=== PATIENT | female | born 1945 | race Caucasian/White ===

== ENCOUNTER 2016-11-30 17:25 | Emergency (ER) | payer MEDICARE ==
[~2016-11-30] VITALS: Ht 165.1 cm; Wt 74.8 kg
[~2016-11-30 17:25] MED LIST: CHOL500021 PO; CIPR5DRO RIGHTEYE; CYCL10TA2 PO; DIAZ5TAB4 PO; GUAI-42 PO; ISOS30TA4 PO; ONDA4TAB10 SL; PANT40TA3 PO; PRED1DRO RIGHTEYE; ROPI1TAB2 PO; SERT50TA8 PO; SIMV20TA3 PO; TRAM1TAB49 PO; TRAZ100T12 PO
[2016-11-30] MEDS ORDERED: MORPHINE SULFATE 10 MG/ML VIAL. IM ONE (18:15)
[2016-11-30] MEDS ORDERED: ONDANSETRON ODT 4 MG TAB.RAPDIS. PO ONE (18:15)
--- NOTE | 2016-11-30 18:15 | ED.ADGEN ---
Past Medical History Past Medical History: Anxiety, Hypertension, IBS, Other Additional Past Medical Histor: Restless Legs,"May have an ulcer," Past Surgical History: Appendectomy, Cholecystectomy, Hysterectomy, Tubal ligation, Other Additional Past Surgical Histo: Bilateral cataract Alcohol Use: Occasionally Drug Use: None Adult General Chief Complaint Chief Complaint: SHOUDLER Pain [facility] HPI Patient is a 71 year old emailed history of anxiety and chronic back pain who presents with acute right shoulder pain radiating from right neck starting yesterday. Pain progressed throughout today. Pain is worse with palpation, shoulder movement and neck rotation. Patient reports tingling in her fingers but denies loss of motor strength or function. Patient denies injury or trauma, but states she feels as though she may have slept on neck wrong. She denies chest pain, nausea or shortness of breath or sweats. However, shortly after ED arrival, patient vomited one time. She please she is nauseated from the pain medication she took prior to ED arrival. Review of Systems Review of Systems ROS as per HPI. Current Medications Current Medications Current Medications Medications (Trade) Dose Ordered Sig/Rocío Start Time Stop Time Status Last Admin Dose Admin Diazepam (Valium) 10 mg 1X ONCE 11/30/16 18:15 11/30/16 18:16 DC 11/30/16 18:25 10 MG Morphine Sulfate 5 mg 1X ONCE 11/30/16 18:15 11/30/16 18:16 DC 11/30/16 18:25 5 MG Ondansetron HCl (Zofran Odt) 4 mg 1X ONCE 11/30/16 18:15 11/30/16 18:16 DC 11/30/16 18:25 4 MG Allergies Allergies Allergies Coded Allergies Type Severity Reaction Last Updated Verified No Known Drug Allergies 12/06/14 No Physical Exam Physical Exam Constitutional: Well developed, well nourished, anxious, moderate distress secondary to pain. HENT: Normocephalic, atraumatic, bilateral external ears normal, oropharynx moist, no oral exudates, nose normal. Eyes: PERRLA, EOMI, conjunctiva normal. Neck: Normal range of motion, no tenderness, supple, limited lateral rotation secondary to neck pain. Cardiovascular:Heart rate regular rhythm, no murmur. Lungs & Thorax: Bilateral breath sounds clear to auscultation. Abdomen: Bowel sounds normal, soft, no tenderness,. Skin: Warm, dry, no erythema, no rash. Back: No tenderness, no CVA tenderness. Extremities: Right shoulder, no bony tenderness, right shoulder abduction and rotation produces neck pain and radicular pain symptoms. Neurologic: Right upper extremity, no motor weakness or loss of sensation. Psychologic: Affect normal, judgement normal, mood normal. Current Patient Data Vital Signs Vital Signs Date Time Temp Pulse Resp B/P (MAP) Pulse Ox O2 Delivery O2 Flow Rate FiO2 11/30/16 19:45 68 22 130/62 (84) 98 Room Air 11/30/16 17:25 98.0 98.0 EKG EKG [] Radiology/Procedures Radiology/Procedures [MRI cervical spine reviewed: Please see radiology report for complete results. Right shoulder: No obvious displaced disease.] Course & Med Decision Making Course & Med Decision Making Pertinent Labs and Imaging studies reviewed. (See chart for details) [No motor weakness on physical exam. High grade foraminal stenosis. Patient's pain addressed symptoms improved. Patient nauseated secondary to pain medications.] Dragon Disclaimer Dragon Disclaimer This electronic medical record was generated, in whole or in part, using a voice recognition dictation system. JUNIOR STEPHENSON DO November 30, 2016 18:15
--- NOTE | 2016-11-30 19:38 | RAD ---
PROCEDURE MRI cervical spine without contrast. HISTORY Shoulder pain and neck pain. Right arm pain. Symptoms for 2 days. TECHNIQUE Sagittal T1, sagittal T2, sagittal STIR, axial T2, and axial T2 gradient sequences are provided. COMPARISON None. FINDINGS There is no malalignment. There is no marrow edema. There is no worrisome marrow lesion. There is no cord signal abnormality. Cervicomedullary junction is unremarkable. Degenerative findings by individual level are as follows: C2-C3: There is no canal or foraminal compromise. C3-C4: There is a minimal disc osteophyte complex without canal or foraminal compromise. C4-C5: There is a disc osteophyte complex and uncinate process spurring. There is effacement of the ventral CSF column. Sagittal midline AP diameter of the thecal sac is narrowed to 8 millimeters. Foraminal narrowing is at least moderate. C5-C6: Disc osteophyte complex and uncinate process spurring are noted. Midline AP diameter of the thecal sac is narrowed to 8-9 millimeters. Foraminal narrowing bilaterally appears high-grade. There is effacement of the ventral CSF column. There is narrowing of the interspace. C6-C7: Disc osteophyte complex and uncinate process spurring are noted. Midline AP diameter of the thecal sac is minimally narrowed to 10 millimeters. Foraminal narrowing is moderate to severe. C7-T1: There is no canal or foraminal compromise. IMPRESSION Degenerative changes in the cervical spine are greatest at C4-C5 and C5-C6. Electronically signed by: Aubrey Barrios MD (November 30, 2016 19:37:24)
[2016-11-30 19:45] VITALS: BP 130/62
--- NOTE | 2016-12-01 08:25 | RAD ---
Indication: Atraumatic right shoulder pain radiating to fingers. Nausea and vomiting. Technique: 3 views of the right shoulder are submitted for review. No comparison is available. Findings: There is no fracture or dislocation. There is minimal spurring at the acromioclavicular joint. Impression: Negative for fracture.
== END 2016-11-30 20:03 | disposition home or self-care (01) ==
LOC: ER 18:25
DX: M25.511 Pain in right shoulder (principal); G89.29 Other chronic pain; F41.9 Anxiety disorder, unspecified; I10 Essential (primary) hypertension
CPT/HCPCS: 72141; 73030; 96372; 99284; J2270; J3360; Q0162

== ENCOUNTER 2016-12-15 02:30 | Inpatient (IN) | payer MEDICARE ==
[~2016-12-15] VITALS: Ht 162.6 cm; Wt 75.4 kg
[2016-12-15] MEDS ORDERED: ASPIRIN 325 MG TABLET PO ONE (03:15)
[2016-12-15] MEDS: NITROGLYCERIN SUBLINGUAL 0.4 MG BOTTLE OF 25. SL PRN ×3 (03:26→03:46)
[2016-12-15 03:42] LABS: BASO # 0.1 x10^3/uL (0.0-0.2); BASO % 1 % (0-3); EOS % 1 % (0-3); HEMATOCRIT 43.8 % (36.0-47.0); HEMOGLOBIN 15.2 g/dL (12.0-15.5); LYMPH # 3.2 x10^3/uL (1.0-4.8); LYMPH % 34 % (24-48); MEAN CORPUSCULAR HEMOGLOBIN 30 pg (25-35); MEAN CORPUSCULAR HGB CONC 35 g/dL (31-37); MEAN CORPUSCULAR VOLUME 87 fL (79-100); MONO % 7 % (0-9); NEUT % 58 % (31-73); PLATELET COUNT 284 x10^3/uL (140-400); RED BLOOD COUNT 5.05 x10^6/uL (3.50-5.40); RED CELL DISTRIBUTION WIDTH 14.1 % (11.5-14.5); WHITE BLOOD COUNT 9.5 x10^3/uL (4.0-11.0)
--- NOTE | 2016-12-15 03:56 | PHYS DOC ---
Past Medical History Past Medical History: Anxiety, Hypertension, IBS, Other Additional Past Medical Histor: Restless Legs,"May have an ulcer" SHINGLES Past Surgical History: Appendectomy, Cholecystectomy, Hysterectomy, Tubal ligation, Other Additional Past Surgical Histo: Bilateral cataract Alcohol Use: Occasionally Drug Use: None Adult General Chief Complaint Chief Complaint: CHEST WALL PAIN HPI HPI Patient is a 71 year old [f__sex] who presents with [] Review of Systems Review of Systems Constitutional: Denies fever or chills [] Eyes: Denies change in visual acuity, redness, or eye pain [] HENT: Denies nasal congestion or sore throat [] Respiratory: Denies cough or shortness of breath [] Cardiovascular: No additional information not addressed in HPI [] GI: Denies abdominal pain, nausea, vomiting, bloody stools or diarrhea [] : Denies dysuria or hematuria [] Musculoskeletal: Denies back pain or joint pain [] Integument: Denies rash or skin lesions [] Neurologic: Denies headache, focal weakness or sensory changes [] Endocrine: Denies polyuria or polydipsia [] Current Medications Current Medications Current Medications Medications (Trade) Dose Ordered Sig/Rocío Start Time Stop Time Status Last Admin Dose Admin Aspirin (Torrey Aspirin) 325 mg 1X ONCE 12/15/16 03:15 12/15/16 03:16 DC 12/15/16 03:26 325 MG Nitroglycerin (Nitrostat) 0.4 mg PRN Q5MIN PRN 12/15/16 03:15 12/15/16 03:46 0.4 MG Allergies Allergies Allergies Coded Allergies Type Severity Reaction Last Updated Verified No Known Drug Allergies 12/06/14 No Physical Exam Physical Exam Constitutional: Well developed, well nourished, no acute distress, non-toxic appearance. [] HENT: Normocephalic, atraumatic, bilateral external ears normal, oropharynx moist, no oral exudates, nose normal. [] Eyes: PERRLA, EOMI, conjunctiva normal, no discharge. [] Neck: Normal range of motion, no tenderness, supple, no stridor. [] Cardiovascular:Heart rate regular rhythm, no murmur [] Lungs & Thorax: Bilateral breath sounds clear to auscultation [] Abdomen: Bowel sounds normal, soft, no tenderness, no masses, no pulsatile masses. [] Skin: Warm, dry, no erythema, no rash. [] Back: No tenderness, no CVA tenderness. [] Extremities: No tenderness, no cyanosis, no clubbing, ROM intact, no edema. [] Neurologic: Alert and oriented X 3, normal motor function, normal sensory function, no focal deficits noted. [] Psychologic: Affect normal, judgement normal, mood normal. [] Current Patient Data Vital Signs Vital Signs Date Time Temp Pulse Resp B/P (MAP) Pulse Ox O2 Delivery O2 Flow Rate FiO2 12/15/16 03:46 99 132/76 12/15/16 03:33 18 94 Room Air 12/15/16 02:51 97.9 97.9 Lab Values Laboratory Tests Test 12/15/16 03:00 White Blood Count 9.5 x10^3/uL (4.0-11.0) Red Blood Count 5.05 x10^6/uL (3.50-5.40) Hemoglobin 15.2 g/dL (12.0-15.5) Hematocrit 43.8 % (36.0-47.0) Mean Corpuscular Volume 87 fL (79-100) Mean Corpuscular Hemoglobin 30 pg (25-35) Mean Corpuscular Hemoglobin Concent 35 g/dL (31-37) Red Cell Distribution Width 14.1 % (11.5-14.5) Platelet Count 284 x10^3/uL (140-400) Neutrophils (%) (Auto) 58 % (31-73) Lymphocytes (%) (Auto) 34 % (24-48) Monocytes (%) (Auto) 7 % (0-9) Eosinophils (%) (Auto) 1 % (0-3) Basophils (%) (Auto) 1 % (0-3) Neutrophils # (Auto) 5.5 x10^3uL (1.8-7.7) Lymphocytes # (Auto) 3.2 x10^3/uL (1.0-4.8) Monocytes # (Auto) 0.6 x10^3/uL (0.0-1.1) Eosinophils # (Auto) 0.0 x10^3/uL (0.0-0.7) Basophils # (Auto) 0.1 x10^3/uL (0.0-0.2) Sodium Level 135 mmol/L (136-145) L Potassium Level 3.8 mmol/L (3.5-5.1) Chloride Level 95 mmol/L (98-107) L Carbon Dioxide Level 27 mmol/L (21-32) Anion Gap 13 (6-14) Blood Urea Nitrogen 13 mg/dL (7-20) Creatinine 0.8 mg/dL (0.6-1.0) Estimated GFR (Cockcroft-Gault) 71.1 Glucose Level 145 mg/dL (70-99) H Calcium Level 10.0 mg/dL (8.5-10.1) Troponin I Quantitative < 0.017 ng/mL (0.000-0.055) Laboratory Tests 12/15/16 03:00 Laboratory Tests 12/15/16 03:00 EKG EKG EKG as interpreted by me shows a sinus rhythm with a rate of 96 bpm. There is a leftward axis. There is no acute injury pattern seen. Intervals are normal. Radiology/Procedures Radiology/Procedures [] Course & Med Decision Making Course & Med Decision Making Pertinent Labs and Imaging studies reviewed. (See chart for details) [] Dragon Disclaimer Dragon Disclaimer This electronic medical record was generated, in whole or in part, using a voice recognition dictation system. Departure Departure Impression: Primary Impression: Chest pain Disposition: ADMITTED INPATIENT Admitting Physician: Minna Richards Referrals: SYLVIA HARP MD (PCP) ARGELIA NOBLE DO Dec 15, 2016 03:56
[2016-12-15 03:59] LABS: CREATININE 0.8 mg/dL (0.6-1.0); GFR 71.1; POTASSIUM 3.8 mmol/L (3.5-5.1)
[2016-12-15] MEDS ORDERED: ACETAMINOPHEN 325 MG TABLET. PO PRN ×2 (04:15→13:30)
[2016-12-15] MEDS ORDERED: ONDANSETRON PF 4 MG/2 ML VIAL. IV PRN (04:15)
--- NOTE | 2016-12-15 04:41 | ACF ---
Admission Forms Criteria CHEST PAIN Clinical Indications for Admission to Inpatient Care (Place 'X' for any and all applicable criteria): Admission is indicated for chest pain and ANY ONE of the following(1)(2)(3)(4)(5 ): [ ]I. Angina with acute coronary syndrome (Also use Myocardial Infarction or Angina guideline) [ ]II. Hemodynamic instability [ ]III. Angina needing acute intervention as indicated by ALL of the following( 11)(12): [ ]a) Unstable angina is present as indicated by angina that is ANY ONE of the following: [ ]i) New onset [ ]ii) Nocturnal [ ]iii) Prolonged at rest [ ]iv) Progressive [ ]b) Angina warrants acute intervention as indicated by ANY ONE of the following: [ ]i) Recurrent angina (e.g, not responding as previously to treatment) [ ]ii) Angina at rest or with low-level activities despite initial medical therapy [ ]iii) New or presumably new ST-segment depression on ECG [ ]iv) Signs or symptoms of heart failure (eg, dyspnea, pulmonary edema) [ ]v) New or worsening mitral regurgitation [ ]vi) Hemodynamic instability [ ]vii) Dangerous arrhythmia (eg, sustained ventricular tachycardia) [ ]viii) History of percutaneous coronary intervention within 6 months [ ]ix) History of coronary artery bypass graft surgery [ ]x) MOUNA risk score of 2 or greater[A] [ ]xi) History of Diabetes(14) [ ]xii) High-risk cardiac ischemia findings on noninvasive testing (e.g, echocardiogram, treadmill testing, nuclear scan) [ ]xiii) Chronic renal insufficiency (ie, estimated GFR less than 60 mL/min/1.732m) [ ]xiv) Left ventricular ejection fraction less than 40% [ ]IV. Evidence of NE (eg, cardiac biomarkers positive, ST-segment elevation on ECG) also use Myocardial Infarction Criteria Form. [ ]V. Pulmonary edema [ ]. Respiratory distress [ ]VII. Chest pain indicative of serious diagnosis other than coronary artery disease (eg, aortic dissection) [ ]VIII. Contraindications and/or Inappropriate clinical situations for Observational Care in patients with Chest Pain, when ANY ONE of the following is required: [ ]a) Patient with risk factor for pulmonary embolism, acute coronary syndrome and myocardial infarction (18) [ ]b) Patient with Pulmonary embolism require an average LOS of 4.3 days, therefore emergency department observation management is inappropriate 18,23 [ ]c) Painful condition/s in the elderly, have the highest rate of recidivism after emergency department observation management (10.8%) 20,21,22 [ ]d) Elevated cardiac biomarker requires intensive and exhaustive care (19) [X]IX. General contraindications and/or Inappropriate clinical situations for Observational Care in patients with Chest Pain, when ANY ONE of the following is required: [X]a) Prediction of prolongation of LOS based on ANY ONE of the following may be considered as a contraindication for observational care 2, 3, 4, 5, 6, 7, 8, 9, 10, 11 [ ]i) Age > 65 yrs. [ ]ii) Patient arriving by ambulance [ ]iii) Patient with high acuity [X]iv) Patient requiring vital sign monitoring [ ]v) Patient on IV medication [ ]b) Systolic blood pressures 180mmHg 3,12 [ ]c) Patient with altered mental status including delirium and other alteration of consciousness, (3) [ ]d) Patient whose discharge disposition will be to a custodial home or rehabilitation home should not be managed in Emergency Department Observation Unit. CMS rule requires 3 days hospital stay before such placement. 3,13 [ ]e) Patient with failure to thrive due to broad array of etiologies 3,16,17 [ ]f) Inability to ambulate 3,14 Extended stay beyond goal length of stay may be needed for (1)(28): [ ]a) Specific condition diagnosed after evaluation (eg, pulmonary embolism, aortic dissection) [ ]b) Unstable angina [ ]c) Continued suspicion of acute coronary syndrome with inability to complete needed cardiac evaluation (eg, patient clinically unable to undergo stress testing) [ ]d) Myocardial infarction (Contents from ANGINA and CHEST PAIN clinical indications for admission to inpatient care have been integrated in this form) The original [facility] content created by [employer] has been revised. The portions of the content which have been revised are identified through the use of italic text or in bold, and [facility] has neither reviewed nor approved the modified material. All other unmodified content is copyright [employer]. Please see references footnoted in the original [facility] edition 2016 Admission Criteria Met?: Yes IRINEO FERNÁNDEZ Dec 15, 2016 04:41
[2016-12-15] MEDS ORDERED: GABA-587 PO (04:58)
[2016-12-15 07:00] VITALS: BP 138/81
--- NOTE | 2016-12-15 07:30 | PDOC ---
Provider Note Provider Note Full note to follow Non - cardiac chest pain. No further testing necessary. Pls call with questions. CRISTOBAL MANN MD Dec 15, 2016 07:30
--- NOTE | 2016-12-15 07:33 | RAD ---
Indication: Chest pain. Time of exam 0321 hours. Correlation is made with prior chest from 06/11/2015. FINDINGS: The heart size is normal. The lungs are clear. No pleural effusion or pneumothorax is identified. The pulmonary vascularity is normal. IMPRESSION: No acute abnormality detected.
--- NOTE | 2016-12-15 07:56 | EKG ---
[facility] [address] [place] [address] Test Date: 2016-12-15 Test Time: 02:40:04 Pat Name: BLANE BRAY Department: Room: 244 1 Gender: F Vamp Creaser: : 1945 Requested By: ARGELIA NOBLE Order Number: [id number] Reading MD: Issa Stanford Measurements Intervals Switchback Rate: 96 P: 56 MA: 126 QRS: -22 QRSD: 68 T: 51 QT: 348 QTc: 441 Interpretive Statements SINUS RHYTHM LEFTWARD AXIS QRS(T) CONTOUR ABNORMALITY CONSIDER ANTEROSEPTAL MYOCARDIAL DAMAGE RI6.01 Unconfirmed report Compared to ECG 06/08/2015 15:03:03 No significant changes Electronically Signed On 12-18-2016 9:51:09 CDT by Issa Stanford
[2016-12-15 11:00] VITALS: BP 141/79
[2016-12-15] MEDS ORDERED: CIPR500T94 PO (13:10)
[2016-12-15] MEDS ORDERED: TRAMADOL HCL PO PRN (13:15)
[2016-12-15] MEDS ORDERED: ACETAMINOPHEN PO PRN (13:15)
--- NOTE | 2016-12-15 13:18 | PDOC1 ---
History and Physical Date of Admission Date of Admission DATE: 12/15/16 TIME: 13:11 Identification/Chief Complaint Chief Complaint R sided chest pain Problems: Source Source: Caregiver, Chart review, Patient History of Present Illness History of Present Illness R sided CP, pleuritic, no associated SOA, diaphoresis, no URI sxs, reproducible on palpation, no radiation, happened at rest, relieved by narcs,. No known CAD hx, EKG and trops reassuring, labs ok, VS ok,. Cleared by cards to go home,. Non gerd in symptomatology. Heavy discussion, likes narcs, Told her MSK pain, costochondritis, better treated with NSAIds, NOw tells me dysuria, UA pending but has sxs,. no white ct, no fever Will rx cipro, NKDA Past Medical History Cardiovascular: Hyperlipidemia Pulmonary: Bronchitis GI: Constipation Heme/Onc: No pertinent hx Hepatobiliary: No pertinent hx Musculoskeletal: low back pain Rheumatologic: No pertinent hx Infectious disease: No pertinent hx ENT: No pertinent hx Renal/: No pertinent hx Endocrine: No pertinent hx Dermatology: No pertinent hx Past Surgical History Past Surgical History: Other (back sx?) Family History Family History: No Significant (rebiewed) Social History Smoke: No ALCOHOL: none Drugs: None Current Problem List Problem List Problems Medical Problems: (1) Chest pain Status: Acute Problems: Current Medications Current Medications Current Medications Nitroglycerin (Nitrostat) 0.4 mg PRN Q5MIN PRN SL CHEST PAIN Last administered on 12/15/16 03:46; Start 12/15/16 at 03:15 Aspirin (Torrey Aspirin) 325 mg 1X ONCE PO Last administered on 12/15/16 03:26 ; Start 12/15/16 at 03:15; Stop 12/15/16 at 03:16; Status DC Ondansetron HCl (Zofran) 4 mg PRN Q8HRS PRN IV NAUSEA/VOMITING; Start 12/15/16 at 04:15; Stop 12/16/16 at 04:14 Acetaminophen (Tylenol) 650 mg PRN Q4HRS PRN PO FEVER Last administered on 10:26; Start 12/15/16 at 04:15; Stop 12/16/16 at 04:14 Active Scripts Active Zofran Odt (Ondansetron) 4 Mg Tab.rapdis 1 Tab SL Q8HRS Protonix (Pantoprazole Sodium) 40 Mg Tablet.dr 1 Tab PO DAILY Reported Gabapentin 400 Mg Capsule 400 Mg PO TID Diazepam 5 Mg Tablet 1 Tab PO DAILY Ultracet Tablet (Tramadol Hcl/Acetaminophen) 1 Each Tablet 37.5 Mg PO QID PRN Sertraline Hcl 50 Mg Tablet 50 Mg PO DAILY Ropinirole Hcl 1 Mg Tablet 1 Mg PO DAILY Simvastatin 20 Mg Tablet 20 Mg PO DAILY Trazodone Hcl 100 Mg Tablet 100 Mg PO HS Cyclobenzaprine Hcl 10 Mg Tablet 1 Tab PO DAILY Allergies Allergies: Coded Allergies: No Known Drug Allergies (Unverified , 12/06/14) ROS General: No: Chills, Night Sweats, Fatigue, Malaise, Appetite, Other PSYCHOLOGICAL ROS: No: Anxiety, Behavioral Disorder, Concentration difficultie , Decreased libido, Depression, Disorientation, Hallucinations, Hostility, Irritablity, Memory difficulties, Mood Swings, Obsessive thoughts, Physical abuse, Sexual abuse, Sleep disturbances, Suicidal ideation, Other Eyes: No Blurry vision, No Decreased vision, No Double vision, No Dry eyes, No Excessive tearing, No Eye Pain, No Itchy Eyes, No Loss of vision, No Photophobia , No Scotomata, No Uses contacts, No Uses glasses, No Other HEENT: No: Heacaches, Visual Changes, Hearing change, Nasal congestion, Nasal discharge, Oral lesions, Sinus pain, Sore Throat, Epistaxis, Sneezing, Snoring, Tinnitus, Vertigo, Vocal changes, Other ALLERGY AND IMMUNOLOGY: No: Hives, Insect Bite Sensitivity, Itchy/Watery Eyes, Nasal Congestion, Post Nasal Drip, Seasonal Allergies, Other Hematological and Lymphatic: No: Bleeding Problems, Blood Clots, Blood Transfusions, Brusing, Night Sweats, Pallor, Swollen Lymph Nodes, Other ENDOCRINE: No: Breast Changes, Galactorrhea, Hair Pattern Changes, Hot Flashes , Malaise/lethargy, Mood Swings, Palpitations, Polydipsia/polyuria, Skin Changes , Temperature Intolerance, Unexpected Weight Changes, Other Breast: No New/Changing Breast Lumps, No Nipple changes, No Nipple discharge, No Other Respiratory: No: Cough, Hemoptysis, Orthopnea, Pleuritic Pain, Shortness of breath, SOB with excertion, Sputum Changes, Stridor, Tachypnea, Wheezing, Other Cardiovascular: yes Chest Pain Genitourinary: YES Dysuria, YES Frequency Skin: No Dry Skin, No Eczema, No Hair Changes, No Lumps, No Mole Changes, No Mottling, No Nail Changes, No Pruritus, No Rash, No Skin Lesion Changes, No Other, No Acne Physical Exam General: Alert, Oriented X3, Cooperative, No acute distress HEENT: PERRLA Lungs: Clear to auscultation, Normal air movement Heart: S1S2 Cardiovascular: S1 Breasts: Normal, Rt breast nml w/o mass, Lt breast nml w/o mass, Nipples normal Abdomen: Normal bowel sounds, Soft, No tenderness, No hepatosplenomegaly, No masses Rectal Exam: not examined PELVIC: Nml ext genitalia Extremities: No clubbing, No cyanosis, No edema, Normal pulses, No tenderness/ swelling Skin: No rashes, No breakdown, No significant lesion Neuro: Normal gait, Normal speech, Strength at 5/5 X4 ext, Normal tone, Sensation intact, Cranial nerves 3-12 NL, Reflexes 2+ Psych/Mental Status: Mental status NL, Mood NL Vitals Vitals Vital Signs Date Time Temp Pulse Resp B/P (MAP) Pulse Ox O2 Delivery O2 Flow Rate FiO2 12/15/16 11:00 98.0 90 20 141/79 (99) 94 Room Air 98.0 Labs Labs Laboratory Tests Test 12/15/16 03:00 White Blood Count 9.5 x10^3/uL (4.0-11.0) Red Blood Count 5.05 x10^6/uL (3.50-5.40) Hemoglobin 15.2 g/dL (12.0-15.5) Hematocrit 43.8 % (36.0-47.0) Mean Corpuscular Volume 87 fL (79-100) Mean Corpuscular Hemoglobin 30 pg (25-35) Mean Corpuscular Hemoglobin Concent 35 g/dL (31-37) Red Cell Distribution Width 14.1 % (11.5-14.5) Platelet Count 284 x10^3/uL (140-400) Neutrophils (%) (Auto) 58 % (31-73) Lymphocytes (%) (Auto) 34 % (24-48) Monocytes (%) (Auto) 7 % (0-9) Eosinophils (%) (Auto) 1 % (0-3) Basophils (%) (Auto) 1 % (0-3) Neutrophils # (Auto) 5.5 x10^3uL (1.8-7.7) Lymphocytes # (Auto) 3.2 x10^3/uL (1.0-4.8) Monocytes # (Auto) 0.6 x10^3/uL (0.0-1.1) Eosinophils # (Auto) 0.0 x10^3/uL (0.0-0.7) Basophils # (Auto) 0.1 x10^3/uL (0.0-0.2) Sodium Level 135 mmol/L (136-145) Potassium Level 3.8 mmol/L (3.5-5.1) Chloride Level 95 mmol/L (98-107) Carbon Dioxide Level 27 mmol/L (21-32) Anion Gap 13 (6-14) Blood Urea Nitrogen 13 mg/dL (7-20) Creatinine 0.8 mg/dL (0.6-1.0) Estimated GFR (Cockcroft-Gault) 71.1 Glucose Level 145 mg/dL (70-99) Calcium Level 10.0 mg/dL (8.5-10.1) Troponin I Quantitative < 0.017 ng/mL (0.000-0.055) Laboratory Tests Test 12/15/16 03:00 White Blood Count 9.5 x10^3/uL (4.0-11.0) Red Blood Count 5.05 x10^6/uL (3.50-5.40) Hemoglobin 15.2 g/dL (12.0-15.5) Hematocrit 43.8 % (36.0-47.0) Mean Corpuscular Volume 87 fL (79-100) Mean Corpuscular Hemoglobin 30 pg (25-35) Mean Corpuscular Hemoglobin Concent 35 g/dL (31-37) Red Cell Distribution Width 14.1 % (11.5-14.5) Platelet Count 284 x10^3/uL (140-400) Neutrophils (%) (Auto) 58 % (31-73) Lymphocytes (%) (Auto) 34 % (24-48) Monocytes (%) (Auto) 7 % (0-9) Eosinophils (%) (Auto) 1 % (0-3) Basophils (%) (Auto) 1 % (0-3) Neutrophils # (Auto) 5.5 x10^3uL (1.8-7.7) Lymphocytes # (Auto) 3.2 x10^3/uL (1.0-4.8) Monocytes # (Auto) 0.6 x10^3/uL (0.0-1.1) Eosinophils # (Auto) 0.0 x10^3/uL (0.0-0.7) Basophils # (Auto) 0.1 x10^3/uL (0.0-0.2) Sodium Level 135 mmol/L (136-145) Potassium Level 3.8 mmol/L (3.5-5.1) Chloride Level 95 mmol/L (98-107) Carbon Dioxide Level 27 mmol/L (21-32) Anion Gap 13 (6-14) Blood Urea Nitrogen 13 mg/dL (7-20) Creatinine 0.8 mg/dL (0.6-1.0) Estimated GFR (Cockcroft-Gault) 71.1 Glucose Level 145 mg/dL (70-99) Calcium Level 10.0 mg/dL (8.5-10.1) Troponin I Quantitative < 0.017 ng/mL (0.000-0.055) VTE Prophylaxis Ordered VTE Prophylaxis Devices: Yes VTE Pharmacological Prophylaxi: Yes Assessment/Plan Assessment/Plan 1. Costochondritis, MSK CP 2. Depression/anxiety NOS 3. Overweight 4. Dyslipidemia 5. Symptomatic UTI, likely PLAn: Goem today NSAids COunselled PO CIpro to home GILLIAN SORENSEN MD Dec 15, 2016 13:18
--- NOTE | 2016-12-15 13:20 | PDOC3 ---
Discharge Summary Visit Information Date of Admission: Dec 14, 2016 Date of Discharge: Dec 15, 2016 Admitting Diagnosis Comment: 1. Costochondritis, MSK CP 2. Depression/anxiety NOS 3. Overweight 4. Dyslipidemia 5. Symptomatic UTI, likely PLAn: Goem today NSAids COunselled PO CIpro to home Final Diagnosis Problems Medical Problems: (1) Chest pain Status: Acute Brief Hospital Course Allergies Allergies Coded Allergies Type Severity Reaction Last Updated Verified No Known Drug Allergies 12/06/14 No Vital Signs Vital Signs Date Time Temp Pulse Resp B/P (MAP) Pulse Ox O2 Delivery O2 Flow Rate FiO2 12/15/16 11:00 98.0 90 20 141/79 (99) 94 Room Air 98.0 Lab Results Laboratory Tests Test 12/15/16 03:00 White Blood Count 9.5 x10^3/uL (4.0-11.0) Red Blood Count 5.05 x10^6/uL (3.50-5.40) Hemoglobin 15.2 g/dL (12.0-15.5) Hematocrit 43.8 % (36.0-47.0) Mean Corpuscular Volume 87 fL (79-100) Mean Corpuscular Hemoglobin 30 pg (25-35) Mean Corpuscular Hemoglobin Concent 35 g/dL (31-37) Red Cell Distribution Width 14.1 % (11.5-14.5) Platelet Count 284 x10^3/uL (140-400) Neutrophils (%) (Auto) 58 % (31-73) Lymphocytes (%) (Auto) 34 % (24-48) Monocytes (%) (Auto) 7 % (0-9) Eosinophils (%) (Auto) 1 % (0-3) Basophils (%) (Auto) 1 % (0-3) Neutrophils # (Auto) 5.5 x10^3uL (1.8-7.7) Lymphocytes # (Auto) 3.2 x10^3/uL (1.0-4.8) Monocytes # (Auto) 0.6 x10^3/uL (0.0-1.1) Eosinophils # (Auto) 0.0 x10^3/uL (0.0-0.7) Basophils # (Auto) 0.1 x10^3/uL (0.0-0.2) Sodium Level 135 mmol/L (136-145) Potassium Level 3.8 mmol/L (3.5-5.1) Chloride Level 95 mmol/L (98-107) Carbon Dioxide Level 27 mmol/L (21-32) Anion Gap 13 (6-14) Blood Urea Nitrogen 13 mg/dL (7-20) Creatinine 0.8 mg/dL (0.6-1.0) Estimated GFR (Cockcroft-Gault) 71.1 Glucose Level 145 mg/dL (70-99) Calcium Level 10.0 mg/dL (8.5-10.1) Troponin I Quantitative < 0.017 ng/mL (0.000-0.055) Laboratory Tests Test 12/15/16 03:00 White Blood Count 9.5 x10^3/uL (4.0-11.0) Red Blood Count 5.05 x10^6/uL (3.50-5.40) Hemoglobin 15.2 g/dL (12.0-15.5) Hematocrit 43.8 % (36.0-47.0) Mean Corpuscular Volume 87 fL (79-100) Mean Corpuscular Hemoglobin 30 pg (25-35) Mean Corpuscular Hemoglobin Concent 35 g/dL (31-37) Red Cell Distribution Width 14.1 % (11.5-14.5) Platelet Count 284 x10^3/uL (140-400) Neutrophils (%) (Auto) 58 % (31-73) Lymphocytes (%) (Auto) 34 % (24-48) Monocytes (%) (Auto) 7 % (0-9) Eosinophils (%) (Auto) 1 % (0-3) Basophils (%) (Auto) 1 % (0-3) Neutrophils # (Auto) 5.5 x10^3uL (1.8-7.7) Lymphocytes # (Auto) 3.2 x10^3/uL (1.0-4.8) Monocytes # (Auto) 0.6 x10^3/uL (0.0-1.1) Eosinophils # (Auto) 0.0 x10^3/uL (0.0-0.7) Basophils # (Auto) 0.1 x10^3/uL (0.0-0.2) Sodium Level 135 mmol/L (136-145) Potassium Level 3.8 mmol/L (3.5-5.1) Chloride Level 95 mmol/L (98-107) Carbon Dioxide Level 27 mmol/L (21-32) Anion Gap 13 (6-14) Blood Urea Nitrogen 13 mg/dL (7-20) Creatinine 0.8 mg/dL (0.6-1.0) Estimated GFR (Cockcroft-Gault) 71.1 Glucose Level 145 mg/dL (70-99) Calcium Level 10.0 mg/dL (8.5-10.1) Troponin I Quantitative < 0.017 ng/mL (0.000-0.055) Brief Hospital Course Ms. Galloway is a 71 old [ female admitted for CP, non cardiac, no further eval by cards. Also on GI, It is MSK, Education done,. RXd NSAids, Claims dysuria, Rxd cipro Pt seen and examined OBS consults: cards Proc; NOne Discharge Information Condition at Discharge: Improved, Stable Disposition/Orders: D/C to Home Scheduled Cyclobenzaprine Hcl (Cyclobenzaprine Hcl), 1 TAB PO DAILY, (Reported) Diazepam (Diazepam), 1 TAB PO DAILY, (Reported) Gabapentin (Gabapentin), 400 MG PO TID, (Reported) Ondansetron (Zofran Odt), 1 TAB SL Q8HRS Pantoprazole Sodium (Protonix), 1 TAB PO DAILY Ropinirole Hcl (Ropinirole Hcl), 1 MG PO DAILY, (Reported) Sertraline Hcl (Sertraline Hcl), 50 MG PO DAILY, (Reported) Simvastatin (Simvastatin), 20 MG PO DAILY, (Reported) Trazodone Hcl (Trazodone Hcl), 100 MG PO HS, (Reported) Scheduled PRN Tramadol Hcl/Acetaminophen (Ultracet Tablet), 37.5 MG PO QID PRN for PAIN, ( Reported) Discontinued Medications Cholecalciferol (Vitamin D3) (D3-50), 1 CAP PO WEEKLY, (Reported) Ciprofloxacin Hcl (Ciloxan), 1 DROP RIGHTEYE BID, (Reported) Prednisolone Acetate (Pred Forte), 1 DROP RIGHTEYE QID, (Reported) GILLIAN SORENSEN MD Dec 15, 2016 13:20
[2016-12-15] MEDS ORDERED: HYDR-971 PO (13:25)
[2016-12-15] MEDS ORDERED: traMADol 50 MG TABLET PO PRN (13:30)
[2016-12-15 13:58] LABS: BILIRUBIN,URINE NEGATIVE (NEG); GLUCOSE,URINE NEGATIVE (NEG); NITRITE,URINE POSITIVE (NEG); PH,URINE 6.5; PROTEIN,URINE NEGATIVE (NEG-TRACE)
[2016-12-15] MEDS ORDERED: CYCLOBENZAPRINE 10 MG TABLET. PO SCH (14:00)
[2016-12-15] MEDS ORDERED: ONDANSETRON ODT 4 MG TAB.RAPDIS. PO SCH (14:00)
[2016-12-15] MEDS ORDERED: PANTOPRAZOLE 40 MG TABLET.DR. PO SCH (14:00)
[2016-12-15] MEDS ORDERED: rOPINIRole 1 MG TABLET. PO SCH (14:00)
[2016-12-15] MEDS ORDERED: GABAPENTIN 400 MG CAPSULE. PO SCH (14:00)
[2016-12-15] MEDS ORDERED: SERTRALINE 50 MG TABLET. PO SCH (14:00)
[2016-12-15] MEDS ORDERED: diazePAM 5 MG TABLET PO SCH (14:00)
[2016-12-15 14:04] LABS: BACTERIA,URINE MANY /HPF (0-FEW); RBC,URINE 0 /HPF (0-2); SQUAMOUS EPITHELIAL CELL,UR FEW /LPF; WBC,URINE >40 /HPF (0-4)
--- NOTE | 2016-12-15 16:10 | CONS ---
DATE OF CONSULTATION: 12/15/2016 REASON FOR CONSULTATION: Chest pain. HISTORY OF PRESENT ILLNESS: The patient is a 71-year-old woman with past medical history as noted below, who presents to the hospital in the setting of chest pain. She has had chest pain for approximately one and half weeks. She recently saw her primary care physician who felt that she had some shingles and was treated for such. Previous to that she was also seen in the Emergency Department, was noted to have possible cervical radiculopathy. In talking to the patient today, she has chest pain that gets worse with palpation of her chest and with the movement to the right and left. She denies any anginal symptoms at home. She is quite active. Denies any syncope, palpitations, orthopnea, or PND. She does not have any dyspnea. PAST MEDICAL HISTORY: 1. Hyperlipidemia. 2. Bronchitis. 3. History of constipation. 4. Dyslipidemia. SOCIAL HISTORY: No tobacco or illicit drug use. Occasional alcohol use. She lives with her boyfriend. FAMILY HISTORY: Noncontributory. ALLERGIES: No known drug allergies. CURRENT CARDIOVASCULAR MEDICATIONS: Simvastatin 20 mg daily. REVIEW OF SYSTEMS: Negative for 10 out of 14 systems reviewed, unless otherwise mentioned above in HPI. PHYSICAL EXAMINATION: VITAL SIGNS: Afebrile, 90, 20, 141/71, 94% on room air. GENERAL: She is alert and oriented, in mild distress from pain. HEAD AND NECK: Unremarkable. HEART: Regular rate and rhythm without any murmurs, rubs, or gallops. LUNGS: Clear to auscultation. ABDOMEN: Soft, nontender, nondistended. EXTREMITIES: No clubbing, cyanosis, or edema. Warm to touch. 2+ radial and dorsalis pedis pulses. NEUROLOGIC: No focal deficits. MUSCULOSKELETAL: No trauma, but significant pain to palpation of the chest wall. IMAGING STUDIES: Chest x-ray is unremarkable. EKG is unremarkable. Telemetry is unremarkable. DIAGNOSTIC STUDIES: Hemoglobin 15.2, platelets 284, creatinine 0.8, cardiac enzymes negative x 1. Urinalysis positive for WBCs and positive nitrites. IMPRESSION: 1. Noncardiac chest pain. 2. Dyslipidemia. RECOMMENDATIONS: No further cardiovascular testing necessary at this time. Continue home medical therapy. Follow up on an outpatient basis with PCP. Thank you for this consultation. Please call with questions. CRISTOBAL MANN MD DR: MONTSE/esdras JOB#: [id number] / [id number]
[2016-12-15] MEDS ORDERED: traZODone 100 MG TABLET. PO SCH (21:00)
[2016-12-15] MEDS ORDERED: SIMVASTATIN 20 MG TABLET PO SCH (21:00)
== END 2016-12-15 15:00 | disposition home or self-care (01) | DRG 206 ==
LOC: ER 02:30 → 2 SOUTH 03:49
PROVIDERS: ADMIT Internal Medicine; ATTEND Internal Medicine
DX: M94.0 Chondrocostal junction syndrome [Tietze] (principal); N39.0 Urinary tract infection, site not specified; E66.3 Overweight; E78.5 Hyperlipidemia, unspecified; F32.9 Major depressive disorder, single episode, unspecified; F41.9 Anxiety disorder, unspecified; G25.81 Restless legs syndrome; I10 Essential (primary) hypertension; K58.9 Irritable bowel syndrome, unspecified; Z90.49 Acquired absence of other specified parts of digestive tract; Z90.710 Acquired absence of both cervix and uterus; Z98.51 Tubal ligation status; Z79.899 Other long term (current) drug therapy; Z68.28 Body mass index [BMI] 28.0-28.9, adult
CPT/HCPCS: 36415; 71010; 80048; 81001; 84484; 85027; 87086; 93005; 99285-25

== ENCOUNTER → 2016-12-24 | Outpatient (CLI) | payer MEDICARE ==
[2016-12-15 11:00] VITALS: BP 141/79
[~2016-12-24] MED LIST changes: +CIPR500T94 PO; +GABA-587 PO; +GUAI-107 PO; -GUAI-42 PO; +HYDR-971 PO; -TRAM1TAB49 PO; +TRAM1TAB56 PO
--- NOTE | 2016-12-24 16:38 | KCIC ---
Ultrasound of the upper posterior chest HISTORY: Painful palpable lump. FINDINGS: Targeted ultrasound is performed in the area of concern, in the scapular region. There is some asymmetric thickening of muscle tissue in this area, 13 mm. The contralateral side was also briefly scanned, demonstrating a thickness of 6 mm. No evidence of a discrete mass or fluid collection. IMPRESSION: No discrete mass or fluid collection but there is some asymmetric soft tissue or muscle thickening in the area of concern. Significance uncertain. Further evaluation could be obtained with an MRI or CT scan of the upper back. Electronically signed by: Marcus Nunez MD (12/24/2016 4:35 PM)
== END | disposition home or self-care (01) ==
LOC: KCIC US 13:33
PROVIDERS: ATTEND Internal Medicine
DX: M79.89 Other specified soft tissue disorders (principal)
CPT/HCPCS: 76536

== ENCOUNTER → 2017-01-23 | Outpatient (CLI) | payer MEDICARE ==
[~2017-01-23] MED LIST changes: +GADOBUTROL 7.5 MMOL/7.5 ML VIAL IV ONE
--- NOTE | 2017-01-23 13:56 | KCIC ---
Examination: MRI of the right scapula without and with IV contrast and MRI of the right shoulder without contrast HISTORY: History of scapular mass, right shoulder pain, decreased range of motion Comparison: None available TECHNIQUE: Multiplanar, multisequence MR imaging of the right scapula was performed without and with IV contrast. IV contrast used was 7 cc of gadavist. MR imaging of the right shoulder was performed without contrast. COMPARISON: None available FINDINGS: In the region of marker placement of the posterior back , there is a 6.5 x 2.5 cm fatty lesion identified in the subcutaneous region likely a lipoma. No evidence of enhancing mass identified. No evidence of fracture of the scapula. The long head of the biceps tendon is within the bicipital groove. The attachment of the long head of the biceps tendon to the superior labral anchor grossly appears intact. The attachment of the subscapularis tendon appears intact. The attachment of the supraspinatus, infraspinatus tendon grossly appears intact. There is subtle increased signal identified in the region of the anterior labrum measuring 3 mm, best visualized on series 3 image #10. There is moderate joint space loss identified in the glenohumeral joint and acromioclavicular joint likely degeneration. The acromion is type II. Small inferior enthesophyte identified at the acromion clavicular joint abutting the supraspinatus muscle. The muscle bulk grossly appears unremarkable. IMPRESSION: 1. 6.5 cm fatty lesion identified in the subcutaneous region of the upper right back likely a lipoma. 2. Moderate degenerative changes acromioclavicular joint and in the glenohumeral joint. There is small inferior osteophyte formation identified in the acromioclavicular joint abutting the supraspinatus at the musculotendinous junction. Correlate for impingement. 3. There is subtle increased signal identified in the region of the anterior labrum measuring 3 mm, best visualized on series 3 image #10. Uncertain etiology. A subtle labral tear is not completely excluded. If there is clinical suspicion for labral tear, MR arthrogram may be useful. Electronically signed by: Alfredo Clarke MD (01/23/2017 1:53 PM) [facility]
== END | disposition home or self-care (01) ==
LOC: KCIC MRI 11:56
PROVIDERS: ATTEND Internal Medicine
DX: M19.011 Primary osteoarthritis, right shoulder (principal); R22.2 Localized swelling, mass and lump, trunk
CPT/HCPCS: 73220; 73221; A9585

== ENCOUNTER → 2017-02-12 | Day surgery (SDC) | payer MEDICARE ==
[~2017-02-12] VITALS: Ht 160 cm; Wt 77.6 kg
[~2017-02-12] MED LIST changes: +BUPIVACAINE-EPI 0.5%-1:200000 50 ML VIAL. ONE; +DEXAMETHASONE SOD PHOS 20 MG/5 ML VIAL. ONE; +DULO60CA6 PO; +FAMO20TA5 PO; -GADOBUTROL 7.5 MMOL/7.5 ML VIAL IV ONE; +HYDR-2762 PO; +HYDROcodone/APAP 7.5/325MG 1 TAB TABLET PO ONE; +HYDROmorphone 2 MG/ML VIAL IV PRN; +IV RINGERS,LACTATED 1000ML 1,000 ML IV SCH; +LIDOCAINE 1% 1 ML SYRINGE. ID PRN; +LIDOCAINE 2% PF Vial for OR 5 ML VIAL. ONE; +MELO15TA23 PO; +MORPHINE SULFATE 2 MG/ML DISP.SYRIN. IV PRN; +ONDANSETRON PF 4 MG/2 ML VIAL. IV PRN; +ONDANSETRON PF 4 MG/2 ML VIAL. ONE; +PROCHLORPERAZINE 10 MG/2 ML VIAL. IV PRN; +PROPOFOL 20 ML IV ONE; +SEVOFLURANE 31 TO 60 MINUTES. IH ONE; +TRIA1TAB3 PO; +fentaNYL PF VIAL 100 MCG/2 ML VIAL IV PRN; +fentaNYL PF VIAL 100 MCG/2 ML VIAL ONE
--- NOTE | 2017-02-12 09:31 | PDOC4 ---
OPERATIVE NOTE: DOS: 02/12/17 pre and post op dx: back lipoma procedure: excision of 6 cm back lipoma gen anesthesia surgeon dr. chuy mendoza ebl 5 ivf 600 mekhi well to rr stable indication: 71 yo with painful back lipoma procedure in detail: pt was prepped and draped in sterile fashion (after induction of anesthesia and positioning her on her left side). site injected with local. skin incision made with scalpel and subcutaneous tissue divided with cautery. lipoma encountered and dissected away from surrounding tissue with cautery. one vessel was ligated and divided. lipoma excised intact and completely. measured 6 cm. wound irrigated and then closed with 3-0 vicryl in running fashion for deep layer followed by 4-0 monocryl subcuticular fashion. sterile dressing of mastisol, steristrips and tegaderm placed. awakened from general anesthesia. KADY MENDOZA MD Feb 12, 2017 09:31
[2017-02-12 09:48] VITALS: BP 126/73
--- NOTE | 2017-02-13 17:07 | PATHOLOGY ---
PATHOLOGY REPORT * * * * * * * * FINAL DIAGNOSIS: Fibroadipose tissue, right back: - Lipoma. (JPM:niraj; 02/13/2017) COMMENT: There is no evidence of malignancy. REPORT ELECTRONICALLY SIGNED BY: Ronaldo Duong M.D. DATE/TIME: 02/13/2017 17:07 * * * * * * * * GROSS PATHOLOGY: Received in formalin labeled "Debora Galloway lipoma right back," is a 20.2 g segment of lobulated fibroadipose tissue measuring 6.3 x 5.2 x 1.2 cm in maximum dimensions. The specimen is inked with black ink. Sectioning reveals homogeneous, bright yellow cut surfaces. Computer Repair Technician tissue is submitted in cassette A1. (JPM; 02/12/17) INITIAL CPT CODE(S): A; 38253 Professional services performed [place] [facility] [place] [address] Technical services performed by [facility] at [address] [place] [address], [facility] [address] [address]. SPECIMEN(S) RECEIVED: A.Right back lipoma CLINICAL HISTORY: Right back lipoma PATIENT: DEBORA GALLOWAY /AGE: 4 1945 (Age: 71) PATIENT #: [id number] ALT CASE #: SPECIMEN COLLECTION DATE: 02/12/2017 SPECIMEN RECEIVED DATE: 02/12/2017 [facility] - [address] [place] [address] - PHONE: [phone] * * * END OF REPORT * * *
== END ==
LOC: SURG 06:22
PROVIDERS: ATTEND Surgery
DX: D17.1 Benign lipomatous neoplasm of skin and subcutaneous tissue of trunk (principal); E78.00 Pure hypercholesterolemia, unspecified; I10 Essential (primary) hypertension; M19.90 Unspecified osteoarthritis, unspecified site; F32.9 Major depressive disorder, single episode, unspecified; F41.9 Anxiety disorder, unspecified; K21.9 Gastro-esophageal reflux disease without esophagitis; Z98.42 Cataract extraction status, left eye; Z98.41 Cataract extraction status, right eye; M13.861 Other specified arthritis, right knee; Z90.49 Acquired absence of other specified parts of digestive tract; Z98.51 Tubal ligation status; Z87.440 Personal history of urinary (tract) infections; Z83.3 Family history of diabetes mellitus; Z82.49 Family history of ischemic heart disease and other diseases of the circulatory system; Z82.3 Family history of stroke; Z80.9 Family history of malignant neoplasm, unspecified
CPT/HCPCS: 11406; J1100; J2001; J2405; J2704; J3010; 88304

== ENCOUNTER 2017-08-02 16:23 | Emergency (ER) | payer MEDICARE ==
[2017-08-02 16:52] LABS: ADD MAN DIFF? NO
[2017-08-02 16:56] LABS: BASO # 0.1 x10^3/uL (0.0-0.2); BASO % 1 % (0-3); EOS % 0 % (0-3); HEMATOCRIT 44.5 % (36.0-47.0); HEMOGLOBIN 14.9 g/dL (12.0-15.5); LYMPH # 1.2 x10^3/uL (1.0-4.8); LYMPH % 18 % (24-48); MEAN CORPUSCULAR HEMOGLOBIN 30 pg (25-35); MEAN CORPUSCULAR HGB CONC 34 g/dL (31-37); MEAN CORPUSCULAR VOLUME 89 fL (79-100); MONO # 0.7 x10^3/uL (0.0-1.1); MONO % 10 % (0-9); NEUT % 72 % (31-73); PLATELET COUNT 177 x10^3/uL (140-400); RED BLOOD COUNT 4.98 x10^6/uL (3.50-5.40); RED CELL DISTRIBUTION WIDTH 14.4 % (11.5-14.5)
[2017-08-02 17:06] LABS: PROTHROMBIN TIME PATIENT 12.6 SEC (11.7-14.0)
[2017-08-02] MEDS: IV NORMAL SALINE 1000ML BAG 1,000 ML IV (17:09)
[2017-08-02] MEDS: MORPHINE SULFATE 4 MG/ML DISP.SYRIN. IV/SQ (17:10)
[2017-08-02 17:15] LABS: ANION GAP 10 (6-14); BLOOD UREA NITROGEN 13 mg/dL (7-20); CALCIUM 8.8 mg/dL (8.5-10.1); CARBON DIOXIDE 28 mmol/L (21-32); CHLORIDE 99 mmol/L (98-107); CREATININE 0.8 mg/dL (0.6-1.0); GFR 71.1; GLUCOSE 116 mg/dL (70-99); POTASSIUM 3.7 mmol/L (3.5-5.1); SODIUM 137 mmol/L (136-145)
[2017-08-02 17:21] LABS: TROPONINI < 0.017 ng/mL (0.000-0.055)
[2017-08-02 17:21] LABS: ALBUMIN 3.7 g/dL (3.4-5.0); ALK PHOS 63 U/L (46-116); ALT (SGPT) 14 U/L (14-59); AST (SGOT) 15 U/L (15-37); DIRECT BILIRUBIN 0.1 mg/dL (0.0-0.2); LIPASE 104 U/L (73-393); MAGNESIUM 1.9 mg/dL (1.8-2.4); TOTAL BILIRUBIN 0.8 mg/dL (0.2-1.0); TOTAL PROTEIN 7.7 g/dL (6.4-8.2)
[2017-08-02] MEDS: ONDANSETRON PF 4 MG/2 ML VIAL. IV (17:24)
[2017-08-02 17:25] LABS: THYROID STIM HORMONE (TSH) 0.248 uIU/mL (0.358-3.74)
[2017-08-02 17:55] LABS: NT-PRO BNP 338 pg/mL (0-124)
[2017-08-02 17:55] LABS: CKMB MASS < 0.5 ng/mL (0.0-3.6); CREATINE KINASE 39 U/L (26-192)
[2017-08-02] MEDS: AMOXICILLIN/K CLAV 875/125MG TABLET. PO (18:13)
[2017-08-02] MEDS: predniSONE 10 MG TABLET PO (18:31)
[2017-08-02] MEDS: IPRATRPIUM/ALBUTEROL 0.5/2.5MG 3 ML NEBU. NEB (18:51)
== END 2017-08-02 19:36 | disposition home or self-care (01) ==
LOC: ER 16:23
DX: J32.9 Chronic sinusitis, unspecified (principal); I10 Essential (primary) hypertension; K58.9 Irritable bowel syndrome, unspecified; G25.81 Restless legs syndrome
CPT/HCPCS: 36415; 70450; 71045; 80048; 80076; 82553; 83690; 83735; 83880; 84443; 84484; 85025; 85610; 93005; 94640; 96361; 96374; 96375; 99285-25; J2270; J2405; J7030; J7512; J7620

== ENCOUNTER → 2018-04-02 | Outpatient (CLI) | payer MEDICARE ==
[2017-08-02 19:11] VITALS: BP 130/60
[~2018-04-02] MED LIST changes: +AMOX1TAB61 PO; -BUPIVACAINE-EPI 0.5%-1:200000 50 ML VIAL. ONE; -DEXAMETHASONE SOD PHOS 20 MG/5 ML VIAL. ONE; -GUAI-107 PO; +GUAI-108 PO; -HYDROcodone/APAP 7.5/325MG 1 TAB TABLET PO ONE; -HYDROmorphone 2 MG/ML VIAL IV PRN; -IV RINGERS,LACTATED 1000ML 1,000 ML IV SCH; -LIDOCAINE 1% 1 ML SYRINGE. ID PRN; -LIDOCAINE 2% PF Vial for OR 5 ML VIAL. ONE; -MORPHINE SULFATE 2 MG/ML DISP.SYRIN. IV PRN; -ONDANSETRON PF 4 MG/2 ML VIAL. IV PRN; -ONDANSETRON PF 4 MG/2 ML VIAL. ONE; +PRED50TA PO; +PROAIR HFA8.5 GM INH; -PROCHLORPERAZINE 10 MG/2 ML VIAL. IV PRN; -PROPOFOL 20 ML IV ONE; -SEVOFLURANE 31 TO 60 MINUTES. IH ONE; +TRAZ-86 PO; -TRAZ100T12 PO; -fentaNYL PF VIAL 100 MCG/2 ML VIAL IV PRN; -fentaNYL PF VIAL 100 MCG/2 ML VIAL ONE
--- NOTE | 2018-04-02 15:10 | KCIC ---
EXAM: Maxillofacial bone CT without contrast. HISTORY: Sinusitis. TECHNIQUE: Computed tomographic images the maxillofacial bones were obtained without contrast. *One or more of the following individualized dose reduction techniques were utilized for this examination: 1. Automated exposure control. 2. Adjustment of the mA and/or kV according to patient size. 3. Use of iterative reconstruction technique. COMPARISON: None. FINDINGS: There is no significant sinus wall thickening. There is no sinus air-fluid level. The ostiomeatal units are patent. There are bilateral carlos bullosa. There is no significant nasal septal deviation. There is no sinus wall thickening or erosion. There is evidence of lens surgery. The mastoid air cells are clear. The temporomandibular joints are intact. There are multiple missing teeth and dental restorations. There is no mass effect or midline shift. There is no hydrocephalus. No suspicious calvarial lesion is seen. IMPRESSION: No evidence of acute or chronic sinusitis. Electronically signed by: Taylor Jeronimo MD (04/02/2018 3:07 PM) [facility]
== END | disposition home or self-care (01) ==
LOC: KCIC CT 14:16
PROVIDERS: ATTEND Otolaryngology
DX: J32.8 Other chronic sinusitis (principal); Z79.899 Other long term (current) drug therapy
CPT/HCPCS: 70486

== ENCOUNTER 2018-04-22 08:31 | Emergency (ER) | payer MEDICARE ==
[~2018-04-22] VITALS: Ht 167.6 cm; Wt 78.9 kg
[2018-04-22 09:52] VITALS: BP 138/71
[2018-04-22] MEDS ORDERED: HYDROcodone/APAP 5/325MG 1 TAB TABLET PO ONE (10:15)
--- NOTE | 2018-04-22 10:46 | RAD ---
CT of the head without contrast, 04/22/2018: HISTORY: Fall, injuries Comparison is made to a study from 08/02/2017. There is mild cerebral atrophy. The ventricles are within normal limits in size. There is no shift of the midline structures. There is no evidence of acute intracranial hemorrhage or mass effect. IMPRESSION: No acute intracranial abnormality is detected. Electronically signed by: North Rdz MD (04/22/2018 10:43 AM) [facility]
[2018-04-22] MEDS ORDERED: HYDR-2758 PO (10:57)
--- NOTE | 2018-04-22 10:57 | PHYS DOC ---
Past Medical History Past Medical History: Anxiety, Hypertension, IBS, Other Additional Past Medical Histor: Restless Legs,"May have an ulcer" SHINGLES Past Surgical History: Appendectomy, Cholecystectomy, Hysterectomy, Tubal ligation, Other Additional Past Surgical Histo: Bilateral cataract Alcohol Use: Occasionally Drug Use: None Adult General Chief Complaint Chief Complaint: LACERATION/AVULSION HPI HPI Patient is a 72 year old female who presents with headache and multiple abrasions after fall. At about 7 AM this morning, patient slipped on a wet spot on the floor, falling into her china cabinet. She denies loss consciousness. She is small laceration to the right side of her scalp. She has multiple contusions and abrasions to her upper extremities and right knee. Review of Systems Review of Systems Constitutional: Denies fever or chills [] Eyes: Denies change in visual acuity Respiratory: Denies cough or shortness of breath [] Cardiovascular: No additional information not addressed in HPI [] Integument: Small scalp laceration, multiple abrasions to bilateral upper extremities Neurologic: Reports headache. Denies focal weakness or sensory changes [] All other systems were reviewed and found to be within normal limits, except as documented in this note. Current Medications Current Medications Current Medications Medications (Trade) Dose Ordered Sig/Rocío Start Time Stop Time Status Last Admin Dose Admin Acetaminophen/ Hydrocodone Bitart (Lortab 5/325) 1 tab 1X ONCE 04/22/18 10:15 04/22/18 10:16 DC 04/22/18 10:15 1 TAB Allergies Allergies Allergies Coded Allergies Type Severity Reaction Last Updated Verified No Known Drug Allergies 02/12/17 No Physical Exam Physical Exam Constitutional: Well developed, well nourished, no acute distress, non-toxic appearance. [] HENT: Normocephalic, less than 1 cm superficial laceration to top of head just left of midline Eyes: PERRLA, EOMI Neck: Normal range of motion, no tenderness, supple, no stridor. [] Cardiovascular:Heart rate regular rhythm, no murmur [] Lungs & Thorax: Bilateral breath sounds clear to auscultation [] Skin: Warm, dry, multiple abrasions and ecchymosis to bilateral upper extremities and right knee Back: No tenderness, no CVA tenderness. [] Extremities: No tenderness, ROM intact, no edema. [] Neurologic: Alert and oriented X 3, normal motor function, normal sensory function, no focal deficits noted. [] Psychologic: Affect normal, judgement normal, mood normal. [] Current Patient Data Vital Signs Vital Signs Date Time Temp Pulse Resp B/P (MAP) Pulse Ox O2 Delivery O2 Flow Rate FiO2 04/22/18 09:52 97.9 76 20 138/71 (93) 96 Room Air 97.9 EKG EKG [] Radiology/Procedures Radiology/Procedures PATIENT: BLANE BRAY EACCOUNT: [id number]#: [id number] : 1945 LOCATION: ER AGE: 72 SEX: F EXAM STATUS: REG ER ORD. PHYSICIAN: MARVIN LIGHT APRN REASON: head injury PROCEDURE: CT HEAD WO CONTRAST CT of the head without contrast, 04/22/2018: HISTORY: Fall, injuries Comparison is made to a study from 08/02/2017. There is mild cerebral atrophy. The ventricles are within normal limits in size. There is no shift of the midline structures. There is no evidence of acute intracranial hemorrhage or mass effect. IMPRESSION: No acute intracranial abnormality is detected. Electronically signed by: North Rdz MD (04/22/2018 10:43 AM) [facility] DICTATED and SIGNED BY: NORTH RDZ MD DATE: 04/22/18 1041 [] Course & Med Decision Making Course & Med Decision Making Pertinent Labs and Imaging studies reviewed. (See chart for details) Discussed closure of small scalp laceration with patient, she defers repair at this time. I feel this is reasonable and wound should heal without difficulty. Plan: Wound care structures, follow-up with PCP, return precautions reviewed[] Dragon Disclaimer Dragon Disclaimer This electronic medical record was generated, in whole or in part, using a voice recognition dictation system. Departure Departure Impression: Primary Impression: Head injury Additional Impressions: Scalp laceration Multiple abrasions Disposition: 01 HOME, SELF-CARE Condition: GOOD Referrals: SYLVIA HARP MD (PCP) Patient Instructions: Head Injury, Adult Scripts Hydrocodone Bit/Acetaminophen (HYDROCODONE-APAP 5-325 ) 1 Each Tablet 1 TAB PO PRN Q6HRS PRN for PAIN, #14 TAB 0 Refills Prov: MARVIN LIGHT APRN 04/22/18 Problem Qualifiers Primary Impression: Head injury Encounter type: initial encounter Qualified Codes: S09.90XA - Unspecified injury of head, initial encounter Additional Impressions: Scalp laceration Encounter type: initial encounter Qualified Codes: S01.01XA - Laceration without foreign body of scalp, initial encounter MARVIN LIGHT ARTIFICIAL FLOWER MAKER Apr 22, 2018 10:57
== END 2018-04-22 11:05 | disposition home or self-care (01) ==
LOC: ER 08:31
DX: S01.01XA Laceration without foreign body of scalp, initial encounter (principal); S09.90XA Unspecified injury of head, initial encounter; S60.512A Abrasion of left hand, initial encounter; S60.511A Abrasion of right hand, initial encounter; S80.211A Abrasion, right knee, initial encounter; F41.9 Anxiety disorder, unspecified; I10 Essential (primary) hypertension; Z90.49 Acquired absence of other specified parts of digestive tract; Z90.710 Acquired absence of both cervix and uterus; Z90.89 Acquired absence of other organs; Z98.51 Tubal ligation status; W01.0XXA Fall on same level from slipping, tripping and stumbling without subsequent striking against object, initial encounter; Y93.89 Activity, other specified; Y92.89 Other specified places as the place of occurrence of the external cause; Y99.8 Other external cause status
CPT/HCPCS: 70450; 99284

== ENCOUNTER 2018-07-14 08:15 | Emergency (ER) | payer MEDICARE ==
[~2018-07-14] VITALS: Ht 165.1 cm; Wt 76.2 kg
[~2018-07-14 08:15] MED LIST changes: +ALBU2.5V8 INH; -GABA-587 PO; +GABA-689 PO; +HYDR-2761 PO; -HYDR-2762 PO; +HYDR-2765 PO; +HYDR-3164 PO; -HYDR-971 PO; -PROAIR HFA8.5 GM INH
--- NOTE | 2018-07-14 09:25 | RAD ---
Portable chest, 07/14/2018: HISTORY: Shortness of breath Comparison is made to a study from 08/02/2017. The heart size is normal. There is calcific plaquing of the aorta. No pulmonary infiltrate is seen. There is no evidence of pleural fluid. IMPRESSION: No acute cardiopulmonary abnormality is detected. Electronically signed by: North Rdz MD (07/14/2018 9:20 AM) [facility]
[2018-07-14] MEDS ORDERED: IPRATRPIUM/ALBUTEROL 0.5/2.5MG 3 ML NEBU. NEB ONE (09:30)
[2018-07-14 09:46] LABS: INFLUENZA A PATIENT NEGATIVE (NEGATIVE); INFLUENZA B PATIENT NEGATIVE (NEGATIVE)
[2018-07-14] MEDS ORDERED: AZITHROMYCIN 250 MG TABLET. PO ONE (10:30)
[2018-07-14] MEDS ORDERED: MORPHINE SULFATE 4 MG/ML VIAL. IV ONE (10:30)
--- NOTE | 2018-07-14 10:42 | PHYS DOC ---
Past Medical History Past Medical History: Anxiety, Arthritis, GERD, Hypertension, IBS, Other Additional Past Medical Histor: Restless Legs,"May have an ulcer",SHINGLES, CHRONIC PAIN Past Surgical History: Appendectomy, Cholecystectomy, Hysterectomy, Tubal ligation, Other Additional Past Surgical Histo: Bilateral cataract Alcohol Use: Occasionally Drug Use: None Adult General Chief Complaint Chief Complaint: COUGH HPI HPI Patient is a 72 year old female who presents with cough and myalgias. Patient has been ill over the last 5-6 days. She primarily complains of a persistent cough that is worse at night and keeping her awake. Cough is intermittently been productive. She does not have a history of lung disease. No fevers but she has had some chills. She is also had malaise and general myalgias. She complains of bilateral ear pain and popping. She has had a runny nose and some irritation of the throat as well. No nausea or vomiting. No abdominal pain. No chest pain. She has been using [id number] cold remedy medications but states these have not been helping her symptoms. Review of Systems Review of Systems Constitutional: Denies fever Eyes: Denies change in visual acuity HENT: + nasal congestion and ear pain Respiratory: Denies cough or shortness of breath Cardiovascular: No additional information not addressed in HPI GI: Denies abdominal pain, nausea : Denies dysuria Musculoskeletal: Denies back pain Integument: Denies rash or skin lesions Neurologic: Denies focal neuro complaints All other systems were reviewed and found to be within normal limits, except as documented in this note. Current Medications Current Medications Current Medications Medications (Trade) Dose Ordered Sig/Rocío Start Time Stop Time Status Last Admin Dose Admin Albuterol/ Ipratropium (Duoneb) 3 ml 1X ONCE 07/14/18 09:30 07/14/18 09:31 DC 07/14/18 09:30 3 ML Azithromycin (Zithromax) 500 mg 1X ONCE 07/14/18 10:30 07/14/18 10:35 DC 07/14/18 10:34 500 MG Morphine Sulfate (Morphine Sulfate) 4 mg 1X ONCE 07/14/18 10:30 07/14/18 10:35 DC 07/14/18 10:35 4 MG Allergies Allergies Allergies Coded Allergies Type Severity Reaction Last Updated Verified No Known Drug Allergies 8/2/17 No Physical Exam Physical Exam Constitutional: Well developed, well nourished, no acute distress, non-toxic appearance HENT: Normocephalic, atraumatic, bilateral external ears normal, oropharynx moist, TM's are dull with effusions bilaterally and bulging, not erythematous Eyes: PERRLA, EOMI, conjunctiva normal Neck: Normal range of motion, no tenderness Cardiovascular:Heart rate regular rhythm, no murmur Lungs & Thorax: Bilateral breath sounds clear to auscultation Abdomen: Bowel sounds normal, soft Skin: Warm, dry, no erythema Back: No tenderness, no CVA tenderness Extremities: No tenderness, no edema Neurologic: Alert and oriented X 3, normal motor function Psychologic: Affect normal Current Patient Data Vital Signs Vital Signs Date Time Temp Pulse Resp B/P (MAP) Pulse Ox O2 Delivery O2 Flow Rate FiO2 07/14/18 10:35 20 98 Room Air 07/14/18 10:21 98 201/79 (119) 07/14/18 08:53 99.7 99.7 Lab Values Laboratory Tests Test 07/14/18 09:10 07/14/18 10:30 Influenza Type A Antigen Negative (NEGATIVE) Influenza Type B Antigen Negative (NEGATIVE) White Blood Count 7.0 x10^3/uL (4.0-11.0) Red Blood Count 4.54 x10^6/uL (3.50-5.40) Hemoglobin 14.1 g/dL (12.0-15.5) Hematocrit 40.5 % (36.0-47.0) Mean Corpuscular Volume 89 fL (79-100) Mean Corpuscular Hemoglobin 31 pg (25-35) Mean Corpuscular Hemoglobin Concent 35 g/dL (31-37) Red Cell Distribution Width 13.8 % (11.5-14.5) Platelet Count 224 x10^3/uL (140-400) Neutrophils (%) (Auto) 50 % (31-73) Lymphocytes (%) (Auto) 42 % (24-48) Monocytes (%) (Auto) 6 % (0-9) Eosinophils (%) (Auto) 1 % (0-3) Basophils (%) (Auto) 1 % (0-3) Neutrophils # (Auto) 3.5 x10^3uL (1.8-7.7) Lymphocytes # (Auto) 2.9 x10^3/uL (1.0-4.8) Monocytes # (Auto) 0.4 x10^3/uL (0.0-1.1) Eosinophils # (Auto) 0.0 x10^3/uL (0.0-0.7) Basophils # (Auto) 0.1 x10^3/uL (0.0-0.2) Sodium Level 144 mmol/L (136-145) Potassium Level 3.2 mmol/L (3.5-5.1) L Chloride Level 103 mmol/L (98-107) Carbon Dioxide Level 29 mmol/L (21-32) Anion Gap 12 (6-14) Blood Urea Nitrogen 7 mg/dL (7-20) Creatinine 0.9 mg/dL (0.6-1.0) Estimated GFR (Cockcroft-Gault) 61.9 Glucose Level 121 mg/dL (70-99) H Calcium Level 9.6 mg/dL (8.5-10.1) Troponin I Quantitative < 0.017 ng/mL (0.000-0.055) Laboratory Tests 07/14/18 10:30 Laboratory Tests 07/14/18 10:30 EKG EKG No STEMI Interpretation Time: 10:20 Radiology/Procedures Radiology/Procedures CXR: no acute findings Course & Med Decision Making Course & Med Decision Making Pertinent Labs and Imaging studies reviewed. (See chart for details) Patient was evaluated in the emergency department for persistent cough and some upper respiratory symptoms. Her TMs are noted to be dull and with effusions. Her lungs were clear. She did have a wet sounding cough during the interview. She was given 1 albuterol nebulized treatment and some intravenous morphine. Patient's cough was improved. As a precaution, she had EKG and troponin done which were normal. She had CBC and BMP which were also nonacute. Patient was feeling improved and was discharged to home. She was placed on Tessalon Perles, completion of Zithromax pack, prednisone for 4 days, as well as some hydrocodone elixir for cough and comfort. Patient was given a prescription for albuterol inhaler but advised not to fill this medication unless her cough persisted despite the prior interventions. She will follow-up with her primary care doctor or come back to the ER for any new or worsening symptoms. She is accompanied by her today who is driving her home. Raven Disclaimer Sandraon Disclaimer This electronic medical record was generated, in whole or in part, using a voice recognition dictation system. Departure Departure Disposition: 01 HOME, SELF-CARE Condition: GOOD Referrals: SYLVIA HARP MD (PCP) Scripts Albuterol Sulfate (PROAIR HFA INHALER) 8.5 Gm Hfa.aer.ad 2 PUFF INH PRN Q6HRS PRN for COUGH, #1 INHALER 0 Refills Prov: RICHIE COREY DO 07/14/18 Hydrocodone Bit/Acetaminophen (HYDROCODONE-APAP 7.5-325/15 SOLN ) 15 Ml Solution 15 ML PO PRN Q6HRS PRN for cough or pain, #120 ML 0 Refills Prov: RICHIE COREY DO 07/14/18 Azithromycin (AZITHROMYCIN TABLET) 250 Mg Tablet 250 MG PO DAILY for ANTI-BIOTIC, #4 TAB 0 Refills Prov: RICHIE COREY DO 07/14/18 Prednisone (PREDNISONE) 50 Mg Tablet 1 TAB PO DAILY, #4 TAB Prov: RICHIE COREY DO 07/14/18 Benzonatate (TESSALON PERLE) 100 Mg Capsule 1 CAP PO TID, #21 CAP Prov: RICHIE COREY DO 07/14/18 RICHIE COREY DO Jul 14, 2018 10:42
[2018-07-14 10:47] LABS: BASO # 0.1 x10^3/uL (0.0-0.2); BASO % 1 % (0-3); EOS % 1 % (0-3); HEMATOCRIT 40.5 % (36.0-47.0); HEMOGLOBIN 14.1 g/dL (12.0-15.5); LYMPH # 2.9 x10^3/uL (1.0-4.8); LYMPH % 42 % (24-48); MEAN CORPUSCULAR HEMOGLOBIN 31 pg (25-35); MEAN CORPUSCULAR HGB CONC 35 g/dL (31-37); MEAN CORPUSCULAR VOLUME 89 fL (79-100); MONO # 0.4 x10^3/uL (0.0-1.1); MONO % 6 % (0-9); NEUT # 3.5 x10^3uL (1.8-7.7); NEUT % 50 % (31-73); PLATELET COUNT 224 x10^3/uL (140-400); RED BLOOD COUNT 4.54 x10^6/uL (3.50-5.40); RED CELL DISTRIBUTION WIDTH 13.8 % (11.5-14.5)
--- NOTE | 2018-07-14 10:57 | EKG ---
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
[2018-07-14 10:58] LABS: CALCIUM 9.6 mg/dL (8.5-10.1); CREATININE 0.9 mg/dL (0.6-1.0); GFR 61.9; POTASSIUM 3.2 mmol/L (3.5-5.1)
[2018-07-14] MEDS ORDERED: ALBU2.5V8 INH (11:23)
[2018-07-14] MEDS ORDERED: HYDR15SO6 PO (11:23)
[2018-07-14] MEDS ORDERED: BENZ100C PO (11:23)
[2018-07-14] MEDS ORDERED: PRED50TA PO (11:23)
[2018-07-14] MEDS ORDERED: AZIT250T6 PO (11:23)
[2018-07-14 11:28] VITALS: BP 140/65
[2018-07-15] MEDS ORDERED: DOXY100C2 PO (13:06)
== END 2018-07-14 11:39 | disposition home or self-care (01) ==
LOC: ER 08:15
DX: R05 Cough (principal); M79.10 Myalgia, unspecified site; H92.03 Otalgia, bilateral
CPT/HCPCS: 36415; 71045; 80048; 84484; 85025; 87804; 93005; 94640; 96374; 99284; J2270; J7620; Q0144

== ENCOUNTER 2018-07-15 11:21 | Emergency (ER) | payer MEDICARE ==
[~2018-07-15] VITALS: Ht 165.1 cm; Wt 76.2 kg
[~2018-07-15 11:21] MED LIST changes: +AZIT250T6 PO; +BENZ100C PO; +HYDR15SO6 PO
--- NOTE | 2018-07-15 12:28 | PHYS DOC ---
Past Medical History Past Medical History: Anxiety, Arthritis, GERD, Hypertension, IBS, Other Additional Past Medical Histor: Restless Legs,"May have an ulcer",SHINGLES, CHRONIC PAIN Past Surgical History: Appendectomy, Cholecystectomy, Hysterectomy, Tubal ligation, Other Additional Past Surgical Histo: Bilateral cataract Alcohol Use: Occasionally Drug Use: None Adult General Chief Complaint Chief Complaint: ALLERGIC REACTION [facility] Patient is a 72 year old female with complaints of a rash on her upper arms and back and trunk after taking Zithromax for bronchitis that was prescribed yesterday by Dr. Cutler. Patient denies any shortness of breath or wheezing. She states that the rash is very itchy. Prior to arrival to the emergency room patient took 2- 25 mg tablets of Benadryl. Review of Systems Review of Systems Constitutional: Denies fever or chills [] Eyes: Denies change in visual acuity, redness, or eye pain [] HENT: Denies nasal congestion or sore throat [] Respiratory: Denies cough or shortness of breath [] Cardiovascular: No additional information not addressed in HPI [] GI: Denies abdominal pain, nausea, vomiting, bloody stools or diarrhea [] : Denies dysuria or hematuria [] Musculoskeletal: Denies back pain or joint pain [] Integument: Denies rash or skin lesions [] Neurologic: Denies headache, focal weakness or sensory changes [] Endocrine: Denies polyuria or polydipsia [] All other systems were reviewed and found to be within normal limits, except as documented in this note. Allergies Allergies Allergies Coded Allergies Type Severity Reaction Last Updated Verified No Known Drug Allergies 02/12/17 No Physical Exam Physical Exam Constitutional: Well developed, well nourished, no acute distress, non-toxic appearance. [] HENT: Normocephalic, atraumatic, bilateral external ears normal, oropharynx moist, no oral exudates, nose normal. [] Eyes: PERRLA, EOMI, conjunctiva normal, no discharge. [] Neck: Normal range of motion, no tenderness, supple, no stridor. [] Cardiovascular:Heart rate regular rhythm, no murmur [] Lungs & Thorax: Bilateral breath sounds clear to auscultation [] Abdomen: Bowel sounds normal, soft, no tenderness, no masses, no pulsatile masses. [] Skin: Warm, dry, no erythema, no rash. [] Back: No tenderness, no CVA tenderness. [] Extremities: No tenderness, no cyanosis, no clubbing, ROM intact, no edema. [] Neurologic: Alert and oriented X 3, normal motor function, normal sensory function, no focal deficits noted. [] Psychologic: Affect normal, judgement normal, mood normal. [] Current Patient Data Vital Signs Vital Signs Date Time Temp Pulse Resp B/P (MAP) Pulse Ox O2 Delivery O2 Flow Rate FiO2 07/15/18 11:22 98.1 99 20 168/77 (107) 96 Room Air 98.1 EKG EKG [] Radiology/Procedures Radiology/Procedures [] Course & Med Decision Making Course & Med Decision Making Pertinent Labs and Imaging studies reviewed. (See chart for details) [] Dragon Disclaimer Dragon Disclaimer This electronic medical record was generated, in whole or in part, using a voice recognition dictation system. Departure Departure Impression: Primary Impression: Adverse reaction to antibiotic Disposition: HOME, SELF-CARE Condition: IMPROVED Referrals: SYLVIA HARP MD (PCP) Patient Instructions: Drug Allergy, [id number] Additional Instructions: Stop taking zithromax immediately. Continue taking the other medications that were prescribed yesterday. Fill the prescription for doxycycline and take as directed. Follow-up with her primary care doctor as planned, return to the ER if your symptoms worsen. Scripts Doxycycline Hyclate (DOXYCYCLINE HYCLATE) 100 Mg Capsule 1 CAP PO BID, #14 CAP 0 Refills Prov: GABBY MONROY APRN 07/15/18 GABBY MONROY APRN Jul 15, 2018 12:28
[2018-07-15 12:57] VITALS: BP 156/88
[2018-07-15] MEDS ORDERED: DOXY100C2 PO (13:06)
== END 2018-07-15 13:15 | disposition home or self-care (01) ==
LOC: ER 11:21
DX: L27.0 Generalized skin eruption due to drugs and medicaments taken internally (principal); T36.3X5A Adverse effect of macrolides, initial encounter; K21.9 Gastro-esophageal reflux disease without esophagitis; I10 Essential (primary) hypertension; F41.9 Anxiety disorder, unspecified; K58.9 Irritable bowel syndrome, unspecified; Y92.89 Other specified places as the place of occurrence of the external cause
CPT/HCPCS: 99283

== ENCOUNTER 2018-07-30 19:52 | Emergency (ER) | payer MEDICARE ==
[~2018-07-30] VITALS: Ht 160 cm; Wt 77.6 kg
[~2018-07-30 19:52] MED LIST changes: +DOXY100C2 PO
[2018-07-30 20:30] VITALS: BP 145/69
[2018-07-30 20:45] LABS: BASO # 0.1 x10^3/uL (0.0-0.2); BASO % 1 % (0-3); EOS # 0.1 x10^3/uL (0.0-0.7); EOS % 1 % (0-3); HEMATOCRIT 37.9 % (36.0-47.0); HEMOGLOBIN 13.1 g/dL (12.0-15.5); LYMPH # 3.1 x10^3/uL (1.0-4.8); LYMPH % 42 % (24-48); MEAN CORPUSCULAR HEMOGLOBIN 31 pg (25-35); MEAN CORPUSCULAR HGB CONC 34 g/dL (31-37); MEAN CORPUSCULAR VOLUME 89 fL (79-100); MONO # 0.6 x10^3/uL (0.0-1.1); MONO % 8 % (0-9); NEUT # 3.5 x10^3uL (1.8-7.7); NEUT % 48 % (31-73); PLATELET COUNT 194 x10^3/uL (140-400); RED BLOOD COUNT 4.24 x10^6/uL (3.50-5.40); RED CELL DISTRIBUTION WIDTH 13.8 % (11.5-14.5); WHITE BLOOD COUNT 7.4 x10^3/uL (4.0-11.0)
[2018-07-30 20:47] LABS: INFLUENZA A PATIENT NEGATIVE (NEGATIVE); INFLUENZA B PATIENT NEGATIVE (NEGATIVE)
[2018-07-30 20:57] LABS: CALCIUM 9.6 mg/dL (8.5-10.1); GFR 54.8; POTASSIUM 3.8 mmol/L (3.5-5.1)
[2018-07-30 21:03] LABS: ALBUMIN 3.3 g/dL (3.4-5.0); ALBUMIN/GLOBULIN RATIO 0.9 (1.0-1.7); C-REACTIVE PROTEIN 1.6 mg/L (0-3.3); TOTAL BILIRUBIN 0.3 mg/dL (0.2-1.0); TOTAL PROTEIN 7.1 g/dL (6.4-8.2)
[2018-07-30] MEDS ORDERED: PRED50TA PO (21:56)
--- NOTE | 2018-07-30 22:14 | RAD ---
CHEST PA LATERAL History: Left side chest pain today. Comparison: July 14, 2018 Heart size: Within normal limits. Angella/mediastinum: Within normal limits Lungs: No focal airspace consolidation. Pleura: No evidence of pleural effusion. Pneumothorax: None visualized Bones: Regional skeleton appears grossly intact. Miscellaneous: None Impression: No acute radiographic findings. Electronically signed by: Marcus Nunez MD (07/30/2018 10:10 PM) [id number]
--- NOTE | 2018-07-31 04:18 | PHYS DOC ---
Past Medical History Past Medical History: Anxiety, Arthritis, GERD, Hypertension, IBS, Pneumonia, Other Additional Past Medical Histor: Restless Legs,"May have an ulcer",SHINGLES, CHRONIC PAIN Past Surgical History: Appendectomy, Cholecystectomy, Hysterectomy, Tubal ligation, Other Additional Past Surgical Histo: Bilateral cataract Alcohol Use: Occasionally Drug Use: None Adult General Chief Complaint Chief Complaint: COUGH HPI HPI Patient is a 72 year old female presents with persistent cough times the last few days who is currently on Levaquin for treatment of pneumonia. Patient denies fever chills, nausea vomiting and sweats. Reports continued cough, dyspnea with exertion. No chest pain, chest tightness. No leg pain, swelling. No history of CAD, CHF, DVT or PE. No other acute symptoms or complaints. Review of Systems Review of Systems Review symptoms as per history of present illness. All other systems were reviewed and found to be within normal limits, except as documented in this note. Allergies Allergies Allergies Coded Allergies Type Severity Reaction Last Updated Verified azithromycin Allergy Intermediate RASH 07/30/18 Yes Physical Exam Physical Exam Constitutional: Well developed, well nourished, no acute distress, non-toxic appearance. [] HENT: Normocephalic, atraumatic, bilateral external ears normal, oropharynx moist, no oral exudates, nose normal. [] Eyes: PERRLA, EOMI, conjunctiva normal, no discharge. [] Neck: Normal range of motion, no tenderness, supple, no stridor. [] Cardiovascular:Heart rate regular rhythm, no murmur [] Lungs & Thorax: Respirations nonlabored, coarse breath sounds bilaterally. No wheezes or rales.[] Abdomen: Bowel sounds normal, soft. [] Skin: Warm, dry, no erythema, no rash. [] Back: No tenderness, no CVA tenderness. [] Extremities: No tenderness, no cyanosis, no clubbing, ROM intact, no edema. [] Neurologic: Alert and oriented X 3, normal motor function, normal sensory function, no focal deficits noted. [] Psychologic: Affect normal, judgement normal, mood normal. [] Current Patient Data Vital Signs Vital Signs Date Time Temp Pulse Resp B/P (MAP) Pulse Ox O2 Delivery O2 Flow Rate FiO2 07/30/18 20:30 73 17 145/69 (94) 99 Room Air 07/30/18 19:58 98.1 98.1 Lab Values Laboratory Tests Test 07/30/18 20:15 07/30/18 20:34 Influenza Type A Antigen Negative (NEGATIVE) Influenza Type B Antigen Negative (NEGATIVE) White Blood Count 7.4 x10^3/uL (4.0-11.0) Red Blood Count 4.24 x10^6/uL (3.50-5.40) Hemoglobin 13.1 g/dL (12.0-15.5) Hematocrit 37.9 % (36.0-47.0) Mean Corpuscular Volume 89 fL (79-100) Mean Corpuscular Hemoglobin 31 pg (25-35) Mean Corpuscular Hemoglobin Concent 34 g/dL (31-37) Red Cell Distribution Width 13.8 % (11.5-14.5) Platelet Count 194 x10^3/uL (140-400) Neutrophils (%) (Auto) 48 % (31-73) Lymphocytes (%) (Auto) 42 % (24-48) Monocytes (%) (Auto) 8 % (0-9) Eosinophils (%) (Auto) 1 % (0-3) Basophils (%) (Auto) 1 % (0-3) Neutrophils # (Auto) 3.5 x10^3uL (1.8-7.7) Lymphocytes # (Auto) 3.1 x10^3/uL (1.0-4.8) Monocytes # (Auto) 0.6 x10^3/uL (0.0-1.1) Eosinophils # (Auto) 0.1 x10^3/uL (0.0-0.7) Basophils # (Auto) 0.1 x10^3/uL (0.0-0.2) Sodium Level 143 mmol/L (136-145) Potassium Level 3.8 mmol/L (3.5-5.1) Chloride Level 106 mmol/L (98-107) Carbon Dioxide Level 26 mmol/L (21-32) Anion Gap 11 (6-14) Blood Urea Nitrogen 10 mg/dL (7-20) Creatinine 1.0 mg/dL (0.6-1.0) Estimated GFR (Cockcroft-Gault) 54.8 BUN/Creatinine Ratio 10 (6-20) Glucose Level 96 mg/dL (70-99) Calcium Level 9.6 mg/dL (8.5-10.1) Total Bilirubin 0.3 mg/dL (0.2-1.0) Aspartate Amino Transferase (AST) 12 U/L (15-37) L Alanine Aminotransferase (ALT) 16 U/L (14-59) Alkaline Phosphatase 57 U/L (46-116) Troponin I Quantitative < 0.017 ng/mL (0.000-0.055) C-Reactive Protein, Quantitative 1.6 mg/L (0-3.3) SQ-Ybu-A-Type Natriuretic Peptide 113 pg/mL (0-124) Total Protein 7.1 g/dL (6.4-8.2) Albumin 3.3 g/dL (3.4-5.0) L Albumin/Globulin Ratio 0.9 (1.0-1.7) L Laboratory Tests 07/30/18 20:34 Laboratory Tests 07/30/18 20:34 EKG EKG [EKG: Reviewed] Radiology/Procedures Radiology/Procedures [Chest x-ray: No acute cardiopulmonary disease per radiology report] Course & Med Decision Making Course & Med Decision Making Pertinent Labs and Imaging studies reviewed. (See chart for details) [Resolving pneumonia without respiratory compromise. Recommend continued care.] Dragon Disclaimer Dragon Disclaimer This electronic medical record was generated, in whole or in part, using a voice recognition dictation system. Departure Departure Impression: Primary Impression: Pneumonia Disposition: 01 HOME, SELF-CARE Condition: GOOD Patient Instructions: Pneumonia, Adult, [id number] Additional Instructions: Please continue antibiotics and inhaler and take steroids as directed. Follow up with your PCP for re-evaluation in 2-3 days. Return to the ED if new if new or worsening symptoms. Scripts Prednisone (PREDNISONE) 50 Mg Tablet 1 TAB PO DAILY, #5 TAB Prov: JUNIOR STEPHENSON DO 07/30/18 JUNIOR STEPHENSON DO Jul 31, 2018 04:18
== END 2018-07-30 22:00 | disposition home or self-care (01) ==
LOC: ER 19:52
DX: J18.9 Pneumonia, unspecified organism (principal); F41.9 Anxiety disorder, unspecified; M19.90 Unspecified osteoarthritis, unspecified site; K21.9 Gastro-esophageal reflux disease without esophagitis; I10 Essential (primary) hypertension; Z90.49 Acquired absence of other specified parts of digestive tract; Z90.89 Acquired absence of other organs; Z90.710 Acquired absence of both cervix and uterus; Z98.51 Tubal ligation status; Z88.1 Allergy status to other antibiotic agents
CPT/HCPCS: 36415; 71046; 80053; 83880; 84484; 85025; 86140; 87804; 99284-25

== ENCOUNTER → 2021-01-01 | Outpatient (CLI) | payer MEDICARE ==
[~2021-01-01] MED LIST changes: -ISOS30TA4 PO; +ISOS30TA68 PO; -PANT40TA3 PO; +PANT40TA77 PO; -ROPI1TAB2 PO; +ROPI1TAB4 PO; +SERT-267 PO; -SERT50TA8 PO; +SIMV20TA18 PO; -SIMV20TA3 PO; +TRAZ-123 PO; -TRAZ-86 PO
--- NOTE | 2021-01-01 12:07 | KCIC ---
Exam Date: 01/01/2021 9:10 AM MRI LEFT LOWER EXTREMITY W/O Indication: Reason: LEFT FOOT PAIN / Spl. Instructions: / History: Pain and swelling across top of l eft midfoot x 1 month. NKI.. TECHNIQUE: Multiplanar MR imaging of the left midfoot was performed without intravenous contrast. FINDINGS: Moderate degenerative marrow changes are seen involving multiple tarsometatarsal joints, but also sev eral tarsal joints, most prominent at the navicular medial cuneiform joint. No acute fracture is seen . There are prominent dorsal osteophytes throughout the mid foot. There is an ankle joint effusion. The visualized flexor and extensor tendons are within normal limits. There is mild diffuse soft tissu e edema which is nonspecific. The Lisfranc ligament is intact. Limited visualized ligaments of the ankle appear intact. The visual ized plantar fascia and sinus Tarsi are within normal limits. IMPRESSION: Moderate degenerative changes noted without acute osseous abnormality. There is mild diffuse soft tis giovanni edema with an ankle joint effusion. Electronically signed by: Kit Gómez MD (01/01/2021 12:04 PM) [id number]
== END ==
LOC: KCIC MRI 08:56
PROVIDERS: ATTEND Internal Medicine
DX: M19.072 Primary osteoarthritis, left ankle and foot (principal); M25.472 Effusion, left ankle; M25.772 Osteophyte, left ankle; M25.572 Pain in left ankle and joints of left foot
CPT/HCPCS: 73718

== ENCOUNTER → 2021-04-11 | Outpatient (CLI) | payer MEDICARE ==
[~2021-04-11] MED LIST changes: -DOXY100C2 PO; +DOXY100C3 PO; -DULO60CA6 PO; +DULO60CA7 PO
--- NOTE | 2021-04-11 10:46 | KCIC ---
INDICATION: Screening for osteopenia/osteoporosis. Reason: POST MENOPAUSAL, HAND FX, OSTEOPENIA / Sp l. Instructions: / History: COMPARISON: None. TECHNIQUE: Bone densitometry was performed through the lumbar spine and proximal femur. IMPRESSION: Lumbar Spine: BMD: 0.93 T-Score: -1.1 Range: Osteopenic Proximal Femur: BMD: 0.77 T-Score: -1.4 Range: Osteopenic World Health Organization Criteria for Bone Density: T-Score: > -1.0: Normal Range < -1.0 to -2.5: Osteopenic Range < -2.5: Osteoporotic Range Electronically signed by: Ben Bishop MD (04/11/2021 10:44 AM) [id number]
== END ==
LOC: KCIC DEXA 09:37
PROVIDERS: ATTEND Nurse Practitioner Family
DX: S62.91XA Unspecified fracture of right hand, initial encounter for closed fracture (principal); M85.89 Other specified disorders of bone density and structure, multiple sites; X58.XXXA Exposure to other specified factors, initial encounter; Y93.89 Activity, other specified; Y92.89 Other specified places as the place of occurrence of the external cause; Y99.8 Other external cause status; N95.9 Unspecified menopausal and perimenopausal disorder
CPT/HCPCS: 77080